=== PATIENT | female | born 1975 | race African-American/Black ===

== ENCOUNTER 2017-02-15 23:20 | Inpatient (IN) | payer OTHER ==
[~2017-02-15] VITALS: Ht 157.5 cm; Wt 60.3 kg
[2017-02-16] MEDS ORDERED: MORPHINE SULFATE 2 MG/1 ML DISP.SYRIN IV ONE (00:15)
[2017-02-16] MEDS ORDERED: ONDANSETRON 4 MG/2 ML VIAL IV ONE (00:15)
--- NOTE | 2017-02-16 00:20 | NUR ---
CRISSY GONZALEZ FROM TELE NEUROLOGIST ASSESSING PATIENT IN ROOM 1B
[2017-02-16] MEDS ORDERED: ONDANSETRON 4 MG/2 ML VIAL ONE ×3 (00:25→06:35)
[2017-02-16] MEDS ORDERED: MORPHINE SULFATE 2 MG/1 ML DISP.SYRIN ONE ×2 (00:25→06:35)
[2017-02-16 00:45] LABS: BASOPHILS # (AUTO) 0.1 K/uL (0.0-0.2); EOSINOPHILS # (AUTO) 0.1 K/uL (0.0-0.7); HEMATOCRIT 32.1 % (37.0-47.0); MONOCYTES # (AUTO) 0.4 K/uL (0.1-1.30); NEUTROPHILS # (AUTO) 6.4 K/uL (1.8-8.9)
[2017-02-16] MEDS ORDERED: diphenhydrAMINE 50 MG/1 ML VIAL IV ONE (00:45)
[2017-02-16] MEDS ORDERED: MORPHINE SULFATE 4 MG/1 ML DISP.SYRIN IV ONE (00:45)
[2017-02-16] MEDS ORDERED: diphenhydrAMINE 50 MG/1 ML VIAL ONE ×2 (00:47→05:07)
[2017-02-16 00:50] LABS: BASOPHILS % (AUTO) 0.9 % (0.0-2.0); EOSINOPHILS % (AUTO) 0.8 % (0.0-7.0); HEMOGLOBIN 10.3 g/dL (12.0-16.0); LYMPHOCYTES # (AUTO) 1.1 K/uL (0.8-4.8); LYMPHOCYTES % (AUTO) 13.1 % (20.5-51.5); MEAN CORPUSCULAR HEMOGLOBIN 23.3 uug (27.0-31.0); MEAN CORPUSCULAR HGB CONC 32 g/dL (32.0-37.0); MEAN CORPUSCULAR VOLUME 72.3 fL (81.0-99.0); MONOCYTES % (AUTO) 4.6 % (0.0-11.0); NEUTROPHILS % (AUTO) 80.6 % (38.5-71.5); PLATELET COUNT (AUTO) 311 K/uL (150-450); RED BLOOD CELL COUNT(AUTO) 4.44 MIL/uL (4.20-5.40); RED CELL DISTRIBUTION WIDTH 17.4 % (11.5-14.5); WHITE BLOOD COUNT (AUTO) 8.1 K/uL (4.0-11.2)
--- NOTE | 2017-02-16 00:50 | NUR ---
PT OUT OF UNIT FOR CT SCAN OF SPINE VIA [facility]AS[facility]
[2017-02-16 00:55] LABS: ALANINE AMINOTRANSFERASE 19 U/L (14-59); ALBUMIN 3.5 g/dL (3.4-5.0); ALKALINE PHOSPHATASE 22 U/L (50-136); ASPARTATE AMINOTRANSFERASE 18 U/L (15-37); BILIRUBIN,DIRECT < 0.1 mg/dL (0.0-0.2); CALCIUM 8.9 mg/dL (8.5-10.1); CARBON DIOXIDE 21 mmol/L (21-32); CHLORIDE 103 mmol/L (98-107); CREATININE 0.7 mg/dL (0.6-1.3); GFR 111 mL/min (>60); GLUCOSE 148 mg/dL (74-106); POTASSIUM 3.9 mmol/L (3.5-5.1); SODIUM SERUM 137 mmol/L (136-145); TOTAL PROTEIN, SERUM 6.9 g/dL (6.4-8.2); UREA NITROGEN, BLOOD 10 mg/dL (7-18)
[2017-02-16 00:58] LABS: BILIRUBIN,TOTAL 0.1 mg/dL (0.2-1.0)
[2017-02-16 01:02] LABS: EOSINOPHILS % (MANUAL) 1 % (0-8); LYMPHOCYTES % (MANUAL) 15 % (20-40); MONOCYTES % (MANUAL) 9 % (2-10); NEUTROPHILS % (MANUAL) 75 % (42-75); PLATELET ESTIMATE ADEQUATE
[2017-02-16 01:03] LABS: ANISOCYTOSIS 1+; HYPOCHROMASIA 1+
--- NOTE | 2017-02-16 01:03 | NUR ---
PT BACK FROM CT SCAN
[2017-02-16] MEDS ORDERED: MORPHINE SULFATE 4 MG/1 ML DISP.SYRIN ONE (01:18)
[2017-02-16] MEDS ORDERED: ASPIRIN 325 MG TABLET PO ONE (01:30)
[2017-02-16] MEDS ORDERED: ASPIRIN 325 MG TABLET ONE (01:49)
[2017-02-16 02:06] LABS: MAGNESIUM 0.8 mg/dL (1.8-2.4)
[2017-02-16 02:07] LABS: THYROID STIMULATING HORMONE 0.622 mIU/mL (0.358-3.740)
--- NOTE | 2017-02-16 02:10 | NUR ---
PATIENT WENT DOWN FORM CT SCAN.
[2017-02-16] MEDS ORDERED: IV NORMAL SALINE 250 ML IV ONE (02:11)
[2017-02-16] MEDS ORDERED: IOHEXOL 350 100 ML INFUS..BTL ONE (02:11)
--- NOTE | 2017-02-16 02:21 | NUR ---
SBAR REPORT GIVEN TO ROBERTO ZEE.
--- NOTE | 2017-02-16 02:56 | NUR ---
felipa paged... advised by fertilizing machine operator will have MD BERNARDO NÚÑEZ...
[2017-02-16] MEDS ORDERED: ASPI-605 PO (03:03)
[2017-02-16] MEDS ORDERED: ALPR0.255 PO (03:03)
[2017-02-16] MEDS ORDERED: ZOLP5TAB2 PO (03:03)
--- NOTE | 2017-02-16 03:16 | NUR ---
2ND PAGE TO [facility]....
[2017-02-16] MEDS ORDERED: MAGNESIUM HYDROXIDE 30 ML LIQUID UDC PO PRN (04:00)
[2017-02-16] MEDS ORDERED: HYDROCODONE/APAP 5-325MG TABLET PO PRN (04:00)
[2017-02-16] MEDS ORDERED: ACETAMINOPHEN 325 MG TABLET PO PRN (04:00)
[2017-02-16] MEDS ORDERED: ENOXAPARIN SODIUM 40 MG/0.4 ML DISP.SYRIN SQ SCH (04:00)
[2017-02-16] MEDS ORDERED: ZOLPIDEM 5 MG TABLET PO PRN (04:00)
[2017-02-16] MEDS ORDERED: Z GUARD REMEDY PASTE 57 GM TUBE TOP PRN (04:00)
[2017-02-16] MEDS ORDERED: HYDROMORPHONE 1 MG/1 ML DISP.SYRIN IM STA (04:54)
[2017-02-16] MEDS ORDERED: ONDANSETRON 4 MG/2 ML VIAL IV STA (04:54)
[2017-02-16] MEDS ORDERED: diphenhydrAMINE 50 MG/1 ML VIAL IM STA (04:54)
--- NOTE | 2017-02-16 05:00 | NUR ---
Pt. admitted to TELEMETRY , under care of Dr. Jewell, Belongs List completed, pt is alert, oriented x 4, no resp distress noted or reported upon transfer assessment.... pt transferred via gurney...
[2017-02-16] MEDS ORDERED: HYDROMORPHONE 1 MG/1 ML DISP.SYRIN ONE (05:07)
[2017-02-16 05:30] VITALS: BP 114/76
--- NOTE | 2017-02-16 05:30 | NUR ---
nsg: pt received a/o x 4 fr er via [employer] with dx of syncope vs tia. per is experiencing left facial numbness, tingling sensation on LUE/LLE. able to move all extremities, however, Left leg weak, but no drifts. v/s stable. tele, SR. c/o neck, back pain, 07/06. call light within reach. cont to monitor.
[2017-02-16] MEDS ORDERED: MAGNESIUM SULFATE/D5W 200 ML ONE (05:50)
[2017-02-16] MEDS: MAGNESIUM SULFATE/D5W 100 ML IV SCH ×2 (05:54→08:33)
[2017-02-16] MEDS: IV NS 1000 ML 1,000 ML IV PRN (05:56)
[2017-02-16] MEDS: MORPHINE SULFATE 2 MG/1 ML DISP.SYRIN IV PRN ×4 (06:30→22:03)
[2017-02-16] MEDS: ONDANSETRON 4 MG/2 ML VIAL IV PRN ×2 (06:30→23:26)
[2017-02-16] MEDS ORDERED: ENOXAPARIN SODIUM 40 MG/0.4 ML DISP.SYRIN SQ ONE (06:35)
--- NOTE | 2017-02-16 08:00 | NUR ---
awake alert and oriented, explained plan of care- verbalized understanding- needs attended and kept happy- another food tray ordered, listed meds given by prior shift, dstates no more numbness and tingling sensations on face and left arm, very slight on tingling on left leg, no weakness noted, no facial asymmetry noted, safety measures maintained, call lite within each
[2017-02-16] MEDS: ASPIRIN EC 81 MG TABLET.DR PO SCH (08:33)
[2017-02-16] MEDS: PANTOPRAZOLE SODIUM 40 MG TABLET.DR PO SCH (08:33)
--- NOTE | 2017-02-16 09:45 | NUR ---
called midline rn re insertion- to come after MRI
[2017-02-16] MEDS: diphenhydrAMINE 50 MG/1 ML VIAL IV PRN ×2 (09:52→19:56)
--- NOTE | 2017-02-16 10:00 | NUR ---
seen by Dr Lees with orders- pt informed and in agreement- to be done at [facility] at 1100
[2017-02-16 10:30] VITALS: BP 119/73
[2017-02-16] MEDS ORDERED: LORAZEPAM 2 MG/1 ML VIAL IV ONE (10:30)
--- NOTE | 2017-02-16 11:30 | NUR ---
ambulance here for MRI at [facility]- pt is claustrophobic-medicated with ativan iv as ordered, pt in stable condition
--- NOTE | 2017-02-16 12:45 | NUR ---
back from MRI per ambulance, sleepy but arouses easily- vs taken BP 117/78, HR 61, RR 20, r/a sat 98%, survey rodman here for lab, visitors at bedside
--- NOTE | 2017-02-16 13:50 | NUR ---
midline iv inserted on the right upper arm by Dave (midline RN)- tolerated well
--- NOTE | 2017-02-16 14:45 | NUR ---
seen by PT, ambulating in the hallway
--- NOTE | 2017-02-16 15:26 | NUR ---
eeg being done in the room, pt sleeping
[2017-02-16 16:04] VITALS: BP 121/72
--- NOTE | 2017-02-16 16:27 | NUR ---
2D echo being done in the room, tele SR 60
--- NOTE | 2017-02-16 17:00 | NUR ---
pt sleeping Tele SB 59, arouses easily, vss
--- NOTE | 2017-02-16 18:15 | NUR ---
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 " Also mentioned earlier prior MRI that she fell 6 feet high about 6 weeks ago and had MRI done at [facility] ([email or web address]). Requesting to have Ambien at 2029- will endorse to next shift. All needs attended and met, safety measures maintained, call light within reach
--- NOTE | 2017-02-16 19:45 | NUR ---
INSISTS TO GET HER AMBIEN AT THIS TIME.
[2017-02-16 21:59] VITALS: BP 114/59
[2017-02-16 23:58] VITALS: BP 116/76
[2017-02-17] MEDS: diphenhydrAMINE 50 MG/1 ML VIAL IV PRN ×4 (00:34→14:25)
[2017-02-17] MEDS: IV NS 1000 ML 1,000 ML IV PRN ×2 (00:34→12:41)
[2017-02-17] MEDS: MORPHINE SULFATE 2 MG/1 ML DISP.SYRIN IV PRN ×4 (04:19→16:35)
[2017-02-17 05:36] VITALS: BP 108/68
[2017-02-17] MEDS: PANTOPRAZOLE SODIUM 40 MG TABLET.DR PO SCH ×2 (06:14→08:36)
[2017-02-17] MEDS: ONDANSETRON 4 MG/2 ML VIAL IV PRN ×2 (06:17→12:34)
--- NOTE | 2017-02-17 06:42 | NUR ---
END OF SHIFT NOTE: PT IN BED,IN NO ACUTE SIGNS OF DISTRESS. PT REQUESTED FOR MS, BENADRYL, ZOFRAN, AMBIEN DURING SHIFT, GIVEN PRESCRIBED. IVF STILL INFUSING. NO EPISODES OF SYNCOPE. SAFETY MEASURES RENDERED.CALL LIGHT WITHIN REACH.
--- NOTE | 2017-02-17 06:45 | NUR ---
PT WAS GIVEN MOM REQUESTED FOR CONSTIPATION. NO BM REPORTED YET.
[2017-02-17] MEDS: ASPIRIN EC 81 MG TABLET.DR PO SCH (08:34)
[2017-02-17 08:47] LABS: CALCIUM 8.8 mg/dL (8.5-10.1); CREATININE 0.8 mg/dL (0.6-1.3); PHOSPHOROUS 2.9 mg/dL (2.5-4.9); POTASSIUM 3.9 mmol/L (3.5-5.1)
[2017-02-17 11:05] LABS: RED BLOOD CELL COUNT(AUTO) 3.88 MIL/uL (4.20-5.40); WHITE BLOOD COUNT (AUTO) 4.8 K/uL (4.0-11.2)
[2017-02-17 11:06] LABS: BASOPHILS % (AUTO) 0.6 % (0.0-2.0); EOSINOPHILS # (AUTO) 0.1 K/uL (0.0-0.7); HEMATOCRIT 28.4 % (37.0-47.0); HEMOGLOBIN 9.1 g/dL (12.0-16.0); LYMPHOCYTES # (AUTO) 1.7 K/uL (0.8-4.8); LYMPHOCYTES % (AUTO) 35.3 % (20.5-51.5); MEAN CORPUSCULAR HEMOGLOBIN 23.4 uug (27.0-31.0); MEAN CORPUSCULAR HGB CONC 32 g/dL (32.0-37.0); MEAN CORPUSCULAR VOLUME 73.3 fL (81.0-99.0); MONOCYTES # (AUTO) 0.4 K/uL (0.1-1.30); MONOCYTES % (AUTO) 9.1 % (0.0-11.0); NEUTROPHILS # (AUTO) 2.5 K/uL (1.8-8.9); PLATELET COUNT (AUTO) 295 K/uL (150-450); RED CELL DISTRIBUTION WIDTH 18.6 % (11.5-14.5)
[2017-02-17 11:53] LABS: EOSINOPHILS % (MANUAL) 2 % (0-8); LYMPHOCYTES % (MANUAL) 36 % (20-40); MONOCYTES % (MANUAL) 7 % (2-10); NEUTROPHILS % (MANUAL) 55 % (42-75); PLATELET ESTIMATE ADEQUATE
[2017-02-17 12:11] VITALS: BP 114/79
--- NOTE | 2017-02-17 12:30 | NUR ---
Awake, alert, oriented x 4. IVF infusing. Complaining of back pain and nausea. PRN medications given.
[2017-02-17] MEDS ORDERED: LEVETIRACETAM 500 MG TABLET PO SCH (13:45)
[2017-02-17 16:12] VITALS: BP 116/71
--- NOTE | 2017-02-17 16:30 | NUR ---
Complaining of back pain. Morphine given with relief.
[2017-02-17] MEDS ORDERED: MAGN400C PO (18:31)
[2017-02-17] MEDS ORDERED: MULT-1045 PO (18:31)
[2017-02-17] MEDS ORDERED: FERR324T PO (18:31)
--- NOTE | 2017-02-17 19:15 | NUR ---
With discharge order to home. Saline lock removed. Tele removed. Prescription and DC instruction given to patient, verbalized understanding. Went home per wheelchair, in fair condition, not in distress, afebrile.
== END 2017-02-17 19:15 | disposition home or self-care (01) | DRG 101 ==
LOC: ER 23:31 → TELE-TD 02-16 02:40 → TELE 02-16 05:55
PROVIDERS: ADMIT Internal Medicine; ATTEND Internal Medicine
PROC: 05H533Z Insertion of Infusion Device into Right Subclavian Vein, Percutaneous Approach (ICD-10-PCS; principal; 2017-02-16)
DX: R56.9 Unspecified convulsions (principal); R55 Syncope and collapse; E11.9 Type 2 diabetes mellitus without complications; E83.42 Hypomagnesemia; I10 Essential (primary) hypertension; I50.9 Heart failure, unspecified; Z87.74 Personal history of (corrected) congenital malformations of heart and circulatory system; Z98.84 Bariatric surgery status; Z91.81 History of falling; X58.XXXA Exposure to other specified factors, initial encounter; Y93.9 Activity, unspecified; Y92.009 Unspecified place in unspecified non-institutional (private) residence as the place of occurrence of the external cause; Y99.9 Unspecified external cause status; D50.9 Iron deficiency anemia, unspecified; R19.5 Other fecal abnormalities; Z86.73 Personal history of transient ischemic attack (TIA), and cerebral infarction without residual deficits; S06.0X0A Concussion without loss of consciousness, initial encounter
CPT/HCPCS: 36415; 70030-TC; 70450; 70551; 71010; 71275; 72125; 83550; 83735; 84100; 84443; 85025; 85730; 93005; 93307; 95819; 97001; 97003; A4663; J1170; J1200; J1650; J2060; J2270; J2405; J3475; J7030; J7050; Q9967